=== PATIENT | female | born 1960 | race Caucasian/White ===

== ENCOUNTER → 2017-07-05 | Outpatient (CLI) | payer BC, OTHER ==
[~2017-07-05] MED LIST: ALBUTEROL2.5 MG/31 INH; ALEVE220 MG PO; ATORVASTATIN CA40 MG PO; AZITHROMYCIN 2250 MG PO; BUTALBITAL-APA1 EAC1 PO; CA ZN; CALCIUM; DICLOFENAC PO; GLUCOSAMINE CH1 EAC2 PO; KEFLEX500 M1 PO; MAGNESIUM; MEDROL DOSPAK21 TA1 PO; NORCO 10-325 T1 EACH PO; ONDANSETRON HCL4 M1 PO; OSELB75 PO; PHENERGAN 25 MG25 M1 PO; PROPRANOLOL HC120 MG PO; ROBAXIN 750 MG750 M1 PO; TRAMADOL 50 MG50 MG PO; UNICOMPLEX M TA1 TA1 PO; VALIUM5 MG PO; VITAMIN B COMPLEX PO; [UNRECOGNIZED DRUG - OTHER]
== END ==
LOC: RAD 06:06
DX: R91.8 Other nonspecific abnormal finding of lung field (principal)

== ENCOUNTER 2019-09-18 17:04 | Emergency (ER) | payer BC, OTHER ==
[~2019-09-18] VITALS: Ht 170.2 cm; Wt 86.2 kg
[2019-09-18 18:22] LABS: ABSOLUTE NEUTROPHILS 6.9 thou/uL (1.4-8.2); BASOPHILS 0.9 % (0.0-2.0); EOSINOPHILS 4.7 % (0.0-3.0); HEMATOCRIT 48.4 % (37.0-47.0); HEMOGLOBIN 16.1 gm/dL (12.0-15.0); LYMPHOCYTES 15.8 % (24.0-44.0); MCH 29.8 pg (26.0-34.0); MCHC 33.3 g/dL (28.0-37.0); MCV 89.5 fL (80.0-100.0); MONOCYTES 4.2 % (1.0-8.0); PLATELET COUNT 260 thou/uL (150-400); POLYS 74.4 % (36.0-66.0); RBC 5.41 mil/uL (4.20-5.00); WBC 9.3 thou/uL (4.0-11.0)
[2019-09-18 18:24] LABS: ANION GAP 8 mmol/L (7-16); BUN 21 mg/dL (7-18); CHLORIDE 105 mmol/L (98-107); CO2 25 mmol/L (21-32); CREATININE 1.1 mg/dL (0.6-1.0); GLUCOSE 106 mg/dL (74-106); POTASSIUM 4.2 mmol/L (3.5-5.1); SODIUM 138 mmol/L (136-145)
[2019-09-18 18:34] LABS: ALBUMIN 3.6 g/dL (3.4-5.0); SGOT 85 U/L (15-37); SGPT 111 U/L (30-65); TOTAL BILIRUBIN 0.6 mg/dL (0.2-1.0); TOTAL PROTEIN 7.6 g/dL (6.4-8.2); TROPONIN-I <0.06 ng/mL (<0.06)
[2019-09-18] MEDS ORDERED: BUTALB-APAP-CA1 EACH PO (19:46)
[2019-09-18 20:27] VITALS: BP 128/81
[2019-09-18] MEDS ORDERED: ONDANSETRON HCL4 M2 PO (20:51)
--- NOTE | 2019-09-19 07:43 | EKG ---
[facility] [place] [address] ELECTROCARDIOGRAM REPORT Name: CANDIDO HORNE Room #: DEP [facility]#: [id number] Admission: 09/18/19 Attend Phys: Discharge: 09/18/19 Date of : 56 Report #: [id number] THIS REPORT FOR: cc: Navin Marx MD, Brian G. MD Lundgren,Arjun Allen MD [facility] ~ THIS REPORT FOR: //name// [facility] ED Test Date: 2019-09-18 Test Time: 18:27:45 Pat Name: CANDIDO HORNE Department: Room: Gender: Delivery Nurse: [facility] : 1960 Requested By: Kelys May Order Number: [id number] MD: Arjun Langley Measurements Intervals [place] Rate: 87 P: 25 IN: 173 QRS: -14 QRSD: 108 T: -16 QT: 367 QTc: 442 Interpretive Statements Sinus rhythm Left ventricular hypertrophy Borderline T abnormalities, diffuse leads Compared to ECG 06/15/2017 21:34:47 T-wave abnormality still present Electronically Signed On 09-19-2019 7:42:59 CDT by Arjun Langley [email or web address] <ELECTRONICALLY SIGNED> By: Arjun Langley MD, [facility] 09/19/19 0742 1827 1827 Arjun Langley MD, [facility] /EPI
== END 2019-09-18 21:00 | disposition home or self-care (01) ==
LOC: ER 17:04
PROVIDERS: Physician Assistant
DX: G43.909 Migraine, unspecified, not intractable, without status migrainosus (principal); R05 Cough; R07.89 Other chest pain; R20.0 Anesthesia of skin; Z98.890 Other specified postprocedural states; Z90.49 Acquired absence of other specified parts of digestive tract; Z79.899 Other long term (current) drug therapy; Z88.8 Allergy status to other drugs, medicaments and biological substances; Z88.5 Allergy status to narcotic agent

== ENCOUNTER → 2020-05-07 | Outpatient (CLI) | payer BC, OTHER ==
[~2020-05-07] MED LIST changes: +BUTALB-APAP-CA1 EACH PO; +ONDANSETRON HCL4 M2 PO
== END ==
LOC: RAD 09:27
PROVIDERS: ATTEND Pediatrics
DX: R06.00 Dyspnea, unspecified (principal)